=== PATIENT | female | born 1980 | race Caucasian/White ===

== ENCOUNTER 2018-05-29 02:10 | Inpatient (IN) | payer OTHER, MEDICAID ==
[2018-05-29] VITALS (7 sets, daily range): BP systolic 134–159; BP diastolic 60–87
[~2018-05-29] VITALS: Ht 157.5 cm; Wt 46.2 kg
[~2018-05-29 02:10] MED LIST: AMOXICILLIN500 M1 PO; BACTRIM DS TAB1 EACH PO; BACTROBAN CREAM30 G1 TOP; CIPRO500 MG PO; DIURETIC; FLONASE 0.05%50 MCG NASAL; GABAPENTIN 100100 MG PO; HYDROCHLOROTHIA25 M2 PO; HYDROCODON-ACE1 EAC7 PO; HYDROCODONE-APA1 TA1 PO; INSULIN SYRING1 EA11 MC; LANTUS; LANTUS SUBQ; LASIX 20 MG TAB20 MG PO; LIDODERM 5%1 PATC1 TOP; NORCO 10-325 T1 EACH PO; NOVOLOG INSULIN; NOVOLOG100 UNIT/1; NOVOLOG100 UNIT/1 SQ; NOVOLOG100 UNIT/1 SUBQ; TRAMADOL 50 MG50 MG PO; ULTRAM 50MG TAB50 MG PO; ZOFRAN ODT4 MG PO
[2018-05-29 03:40] LABS: ABSOLUTE BASOPHILS 0.1 thou/uL (0.0-0.2); ABSOLUTE EOSINOPHILS 0.2 thou/uL (0.0-0.7); ABSOLUTE MONOCYTES 0.8 thou/uL (0.0-1.2); ABSOLUTE NEUTROPHILS 8.3 thou/uL (1.6-8.1); BASOPHILS 0.7 %; EOSINOPHILS 1.6 %; HEMATOCRIT 34.3 % (37.0-47.0); HEMOGLOBIN 11.7 gm/dL (12.0-15.0); LYMPHOCYTES 17.9 %; MCH 34.1 pg (26.0-34.0); MCV 100.3 fL (80.0-100.0); MONOCYTES 6.9 %; MPV 7.6 fl. (7.2-11.1); NUCLEATED RBCS 0 /100WBC; PLATELET COUNT* 392 thou/uL (150-400); POLYS 72.9 %; RBC 3.42 mil/uL (4.20-5.00); RDW-CV 13.6 % (10.5-14.5); WBC 11.4 thou/uL (4.0-11.0)
[2018-05-29 03:49] LABS: CALCIUM 8.2 mg/dL (8.5-10.1); CREATININE 1.1 mg/dL (0.6-1.3)
[2018-05-29 03:54] LABS: ALBUMIN 2.5 g/dL (3.4-5.0); TOTAL BILIRUBIN 0.1 mg/dL (<0.1-1.0); TOTAL PROTEIN 6.3 g/dL (6.4-8.2)
[2018-05-29 05:12] LABS: AMP/METHAMP Negative (Negative); BARBITURATES Negative (Negative); BENZODIAZEPINES Negative (Negative); COCAINE Negative (Negative); METHADONE Negative (Negative); OPIATES POSITIVE (Negative); PCP Negative (Negative); THC Negative (Negative)
[2018-05-29 05:15] LABS: URINE BILIRUBIN NEGATIVE (Negative); URINE BLOOD NEGATIVE (Negative); URINE CLARITY CLEAR; URINE COLOR YELLOW; URINE GLUCOSE-RANDOM 3+ (Negative); URINE KETONES 2+ (Negative); URINE LEUKOCYTES-REFLEX NEGATIVE (Negative); URINE NITRITE-REFLEX NEGATIVE (Negative); URINE PROTEIN 1+ (Negative); URINE SPECIFIC GRAVITY 1.015 (1.005-1.030); URINE UROBILINOGEN 0.2 E.U./dl (0.2-1.0)
[2018-05-29 05:37] LABS: BE -14.1 mmol/L (-2 to +3); PCO2 28.6 mmHg (35.0-45.0)
[2018-05-29 05:41] LABS: pH 7.233 (7.340-7.450)
[2018-05-29 05:42] LABS: HCO3 11.8 mmol/L (22.0-26.0)
[2018-05-29 09:23] LABS: ALBUMIN 2.1 g/dL (3.4-5.0); CALCIUM 7.7 mg/dL (8.5-10.1); CREATININE 0.7 mg/dL (0.6-1.3); MAGNESIUM 1.7 mg/dL (1.8-2.4); PHOSPHORUS* 1.9 mg/dL (2.5-4.9); POTASSIUM 3.7 mmol/L (3.5-5.1)
[2018-05-29 09:41] LABS: URINE BILIRUBIN NEGATIVE (Negative); URINE BLOOD NEGATIVE (Negative); URINE CLARITY CLEAR; URINE COLOR YELLOW; URINE GLUCOSE-RANDOM 3+ (Negative); URINE KETONES 2+ (Negative); URINE LEUKOCYTES NEGATIVE (Negative); URINE NITRITE NEGATIVE (Negative); URINE PROTEIN 1+ (Negative); URINE SPECIFIC GRAVITY 1.015 (1.005-1.030); URINE UROBILINOGEN 0.2 E.U./dl (0.2-1.0)
--- NOTE | 2018-05-30 12:06 | CON ---
[address] [address] CONSULTATION Name: AKIKO CAMPOS Room: [address] IN .R.#: [id number] Admission: 05/29/18 Attend Phys: Jenna Bang Discharge: 05/29/18 Date of : 78 Report #: [id number] THIS REPORT FOR: //name// CC: DAVEY JOYCE Physician staff Sander Ridley DATE OF SERVICE: 05/29/2018 INFECTIOUS DISEASE CONSULTATION ATTENDING PHYSICIAN: Dr. Ridley. REASON FOR EVALUATION: Skin and soft tissue infection with posterior neck abscess. HISTORY OF PRESENT ILLNESS: Chart reviewed, the patient examined. This is a 38-year-old woman with diabetes mellitus type 1 diagnosed roughly 30 years ago, who was admitted to the Emergency Room with about 1-week history of illness. She noted increasing inflammatory subcutaneous mass in the posterior aspect of her neck. She did note she has not had previous skin and soft tissue infections prior to this. Her blood sugars were difficult to control. She had some fevers. On evaluation, she was found to have an elevated lactic acid and probably had a component of diabetic ketoacidosis as well, with low bicarbonate and increased anion gap. She was empirically started on combination of Rocephin and vancomycin. She is not overtly toxic at this point. Did have bedside debridement in the OR and does have a packing. She does appear to be encephalopathic. Denies any significant pulmonary or gastrointestinal-related complaints. ALLERGIES: NONSTEROIDALS. MEDICATIONS: Include Zosyn, vancomycin, oxycodone, ibuprofen and insulin. PAST MEDICAL HISTORY: As described above. She does have peripheral neuropathy and hypertension. SOCIAL HISTORY: Former smoker. No ethanol, no illicit drug use. FAMILY HISTORY: Noncontributory. REVIEW OF SYSTEMS: As above. PHYSICAL EXAMINATION: GENERAL: She appears somewhat chronically ill, undernourished. She is pleasant, cooperative. She is in ucjf-de-rglfjgjg [place] [address] CONSULTATION Name: ANDRESAKIKO L Room: [address]#: [id number] Admission: 05/29/18 Attend Phys: Jenna Bang Discharge: 05/29/18 Date of : 78 Report #: [id number] neck pain. VITAL SIGNS: Temperature 98.2, pulse 92, respirations 18 and blood pressure 134/77. SKIN: Warm, dry. No rashes. HEENT: Unremarkable. NECK: Has an inflammatory subcutaneous mass with some yelwtqhslu-uk-vptyhx inflammation noted superficially. There is a ribbon gauze in place. This was not disturbed. It is palpably tender. LUNGS: Generally clear to auscultation. HEART: Regular. I do not appreciate any murmur. Borderline tachycardic. ABDOMEN: Soft, nontender and nondistended. EXTREMITIES: No cyanosis. GENITOURINARY: Deferred. RECTAL: Deferred. LABORATORY DATA: Urinalysis with 3+ glucose, 1+ protein and 2+ ketones. Electrolytes: Sodium 133, potassium 3.7, chloride 106, bicarb is 15 with anion gap of 12. It is actually improved from admission with anion gap of 17 with bicarbonate of 13. Glucose was 321. LFTs unremarkable, except for borderline alkaline phosphatase elevation to 138. Albumin 25, total protein 6.3 and estimated GFR 55. CBC: White count of 11.4, H and H 11.7 and 34.3 and platelets of 392,000. Lactic acid initially was 4.6, repeat was 0.3. ASSESSMENT: Skin and soft tissue infection with abscess, suspect complicated by diabetes mellitus type 2. There was metabolic acidosis as well, perhaps mixed. PLAN: We will continue antibiotics as prescribed. I did discuss with Surgery and we may need to further open that up. Continue to monitor expectantly, correct insulin deficit at this point. <ELECTRONICALLY SIGNED> By: Rory Bautista MD 05/30/18 1206 1544 0030Joshoaib Bautista MD /nt
== END 2018-05-29 12:40 | disposition left against medical advice (07) | DRG 871 ==
LOC: M.ERS 02:10 → M.TBA-ER 05:05 → M.ERS 05:05 → M.TBA-ER 05:57 → M.ICU 05:57
PROVIDERS: Internal Medicine; Personal Emergency Response Attendant; ADMIT Internal Medicine
PROC: 0H94XZZ Drainage of Neck Skin, External Approach (ICD-10-PCS; principal; 2018-05-29)
DX: A41.9 Sepsis, unspecified organism (principal); E10.10 Type 1 diabetes mellitus with ketoacidosis without coma; L02.11 Cutaneous abscess of neck; L03.221 Cellulitis of neck; Z53.21 Procedure and treatment not carried out due to patient leaving prior to being seen by health care provider; I10 Essential (primary) hypertension; E10.42 Type 1 diabetes mellitus with diabetic polyneuropathy; F17.210 Nicotine dependence, cigarettes, uncomplicated; Z98.891 History of uterine scar from previous surgery; Z79.4 Long term (current) use of insulin; Z88.8 Allergy status to other drugs, medicaments and biological substances

== ENCOUNTER 2018-05-30 16:18 | Inpatient (IN) | payer OTHER, MEDICAID ==
[~2018-05-30] VITALS: Ht 157.5 cm; Wt 59.9 kg
[2018-05-30 16:29] VITALS: BP 141/62
[2018-05-30 16:50] LABS: ABSOLUTE BASOPHILS 0.1 thou/uL (0.0-0.2); ABSOLUTE EOSINOPHILS 0.1 thou/uL (0.0-0.7); ABSOLUTE LYMPHOCYTES 2.3 thou/uL (0.8-5.3); ABSOLUTE MONOCYTES 1.1 thou/uL (0.0-1.2); ABSOLUTE NEUTROPHILS 9.9 thou/uL (1.6-8.1); BASOPHILS 0.6 %; EOSINOPHILS 0.8 %; HEMATOCRIT 38.9 % (37.0-47.0); HEMOGLOBIN 12.4 gm/dL (12.0-15.0); LYMPHOCYTES 16.8 %; MCH 33.9 pg (26.0-34.0); MONOCYTES 8.4 %; NUCLEATED RBCS 0 /100WBC; POLYS 73.4 %; RBC 3.67 mil/uL (4.20-5.00); WBC 13.5 thou/uL (4.0-11.0)
[2018-05-30 16:55] LABS: MCV 106.1 fL (80.0-100.0); PLATELET COUNT* 477 thou/uL (150-400)
[2018-05-30 17:05] LABS: BE -26.7 mmol/L (-2 to +3)
[2018-05-30 17:09] LABS: HCO3 2.7 mmol/L (22.0-26.0); PCO2 < 17.0 mmHg (35.0-45.0); pH 6.999 (7.340-7.450)
[2018-05-30 17:37] LABS: ANION GAP 27 mmol/L (7-16); BUN 21 mg/dL (7-18); CALCIUM 8.3 mg/dL (8.5-10.1); CHLORIDE 96 mmol/L (98-107); CREATININE 0.9 mg/dL (0.6-1.3); POTASSIUM 4.3 mmol/L (3.5-5.1); SODIUM 128 mmol/L (136-145)
[2018-05-30 17:38] LABS: CO2 < 5 mmol/L (21-32); GLUCOSE 700 mg/dL (70-99)
[2018-05-30 17:46] LABS: ALBUMIN 2.4 g/dL (3.4-5.0); ALKALINE PHOSPHATASE 125 U/L (46-116); SGOT 10 U/L (15-37); SGPT 15 U/L (30-65); TOTAL BILIRUBIN 0.4 mg/dL (<0.1-1.0); TOTAL PROTEIN 6.5 g/dL (6.4-8.2)
[2018-05-30 18:26] LABS: URINE BILIRUBIN NEGATIVE (Negative); URINE BLOOD 3+ (Negative); URINE CLARITY CLEAR; URINE COLOR YELLOW; URINE GLUCOSE-RANDOM 2+ (Negative); URINE LEUKOCYTES-REFLEX NEGATIVE (Negative); URINE NITRITE-REFLEX NEGATIVE (Negative); URINE PROTEIN 1+ (Negative); URINE UROBILINOGEN 0.2 E.U./dl (0.2-1.0)
[2018-05-30 18:29] LABS: URINE KETONES 3+ (Negative)
[2018-05-30 18:37] LABS: CASTS None Seen /LPF (None Seen); MUCUS None Seen strn/LPF (None Seen); SQUAMOUS >10 Many /LPF (0-3)
[2018-05-30 18:38] VITALS: BP 140/72
[2018-05-30 18:38] LABS: BACTERIA-REFLEX 1-9 Few /HPF (None Seen); CRYSTALS None Seen /LPF (None Seen); URINE WBC-REFLEX 0-5 Rare /HPF (0-5); YEAST-REFLEX Present (None Seen)
[2018-05-30 19:00] VITALS: BP 144/81
--- NOTE | 2018-05-30 19:00 | NUR ---
PT CAME TO ICU AT 183. PT C/O OF BACK PAIN 05/10. PT REPORTS SHE DOES NOT LIKE FENTANYL AND PREFERS MORPHINE BECAUSE IT HELPS HER SLEEP BETTER. DR NOTIFIED AND RECEIVED PRN ORDER FOR FENTANYL. INSULIN GTT STARTED. FLUIDS STARTED. VSS. AFEBRILE. LABORED BREATHING , 100% ON ROOM AIR. PUT 2L NC FOR COMFORT, TAKEN OFF PER PT REQUEST.
[2018-05-30 20:50] LABS: ALBUMIN 2.5 g/dL (3.4-5.0); CALCIUM 8.1 mg/dL (8.5-10.1); PHOSPHORUS* 3.4 mg/dL (2.5-4.9); POTASSIUM 3.6 mmol/L (3.5-5.1)
[2018-05-30 21:00] VITALS: BP 133/73
[2018-05-30 22:00] VITALS: BP 124/73
[2018-05-30 22:47] LABS: BE -19.1 mmol/L (-2 to +3)
[2018-05-30 22:49] LABS: pH 7.191 (7.340-7.450)
[2018-05-30 22:50] LABS: HCO3 7.1 mmol/L (22.0-26.0); PCO2 18.9 mmHg (35.0-45.0); PO2 132.2 mmHg (75.0-100.0)
[2018-05-30 23:00] VITALS: BP 118/65
[2018-05-31] VITALS (24 sets, daily range): BP systolic 104–144; BP diastolic 49–80
[2018-05-31 01:11] LABS: ALBUMIN 1.8 g/dL (3.4-5.0); CALCIUM 7.3 mg/dL (8.5-10.1); CREATININE 0.8 mg/dL (0.6-1.3); MAGNESIUM 1.7 mg/dL (1.8-2.4); PHOSPHORUS* 2.2 mg/dL (2.5-4.9); POTASSIUM 3.7 mmol/L (3.5-5.1)
--- NOTE | 2018-05-31 01:22 | NUR ---
ADMITTED TO ICU BED 1 AT 1845, SEE ASSESSMENT. DKA PROTOCOL INITIATED. ABCESS TO BACK OF NECK WHICH HAD BEEN I&D'd 05/29/18 IN ER, PHOTO TAKEN AND WOUND RN CONSULTED. ASSISTED PT TO BSC WITH SBA ONLY X1, GAIT STEADY. PT ORIENTED TO CALL LIGHT AND ROOM, VERBALIZED UNDERSTANDING.
[2018-05-31 04:44] LABS: HEMATOCRIT 30.3 % (37.0-47.0); MCH 33.6 pg (26.0-34.0); MCHC 33.6 g/dL (28.0-37.0); MPV 7.3 fl. (7.2-11.1); NUCLEATED RBCS 0 /100WBC; RBC 3.02 mil/uL (4.20-5.00); RDW-CV 13.7 % (10.5-14.5)
[2018-05-31 05:02] LABS: HEMOGLOBIN 10.2 gm/dL (12.0-15.0); MCV 100.2 fL (80.0-100.0); PLATELET COUNT* 385 thou/uL (150-400)
[2018-05-31 05:10] LABS: ALBUMIN 1.8 g/dL (3.4-5.0); ALKALINE PHOSPHATASE 74 U/L (46-116); ANION GAP 13 mmol/L (7-16); BUN 13 mg/dL (7-18); CHLORIDE 107 mmol/L (98-107); CO2 14 mmol/L (21-32); CREATININE 0.7 mg/dL (0.6-1.3); GLUCOSE 147 mg/dL (70-99); MAGNESIUM 1.6 mg/dL (1.8-2.4); PHOSPHORUS* 1.8 mg/dL (2.5-4.9); POTASSIUM 3.5 mmol/L (3.5-5.1); SGOT 8 U/L (15-37); SGPT 10 U/L (30-65); SODIUM 134 mmol/L (136-145); TOTAL PROTEIN 5.1 g/dL (6.4-8.2)
[2018-05-31 05:16] LABS: TOTAL BILIRUBIN < 0.1 mg/dL (<0.1-1.0)
[2018-05-31 06:05] LABS: ABSOLUTE BASOPHILS 0.1 thou/uL (0.0-0.2); ABSOLUTE EOSINOPHILS 0.2 thou/uL (0.0-0.7); ABSOLUTE MONOCYTES 0.8 thou/uL (0.0-1.2); ABSOLUTE NEUTROPHILS 6.9 thou/uL (1.6-8.1); ANISOCYTOSIS 1+; PLATELET ESTIMATE ADEQUATE; POIKILOCYTOSIS 1+
--- NOTE | 2018-05-31 06:21 | NUR ---
SPOKE WITH DR SOLIS, MAG REPLACEMENT AND CLEAR LIQUID DIET ORDERED. PT PROGRESSING TOWARD GOALS, GAP CLOSED AND ELYTES NORMALIZING. PT TOLERATING WELL, DENIES SOA AND NAUSEA. BACK AND NECK PAIN TREATED WITH PRN FENTANYL ORDERED. CALL LIGHT WITHIN REACH.
[2018-05-31 09:37] LABS: ALBUMIN 1.9 g/dL (3.4-5.0); CALCIUM 7.1 mg/dL (8.5-10.1); CREATININE 0.5 mg/dL (0.6-1.3); MAGNESIUM 2.3 mg/dL (1.8-2.4); PHOSPHORUS* 1.5 mg/dL (2.5-4.9)
[2018-05-31 09:38] LABS: POTASSIUM 4.5 mmol/L (3.5-5.1)
--- NOTE | 2018-05-31 10:10 | NUR ---
MET WITH PT TO DISCUSS HOME SITUATION/DC PLANNING. PT KNOWN FROM PREVIOUS HOSPITAL STAY, SHE LEFT AMA. STATES HER FATHER WAS HAVING SURGERY AND SHE NEEDED TO BE THERE. READMITTED NOW WITH DKA AND NECK ABSCESS. PT STATES SHE LIVES WITH HER SPOUSE AND 13Y/O SON. IS INDEPENDENT AND ACTIVE. PT STATES SHE HAS [employer]SB[employer] METER AT HOME AND MANAGES HER DM FAIRLY WELL. DENIES ANY DC NEEDS AT THIS TIME. WILL FOLLOW
[2018-05-31 12:43] LABS: ALBUMIN 1.7 g/dL (3.4-5.0); CALCIUM 6.7 mg/dL (8.5-10.1); CREATININE 0.7 mg/dL (0.6-1.3); MAGNESIUM 2.3 mg/dL (1.8-2.4); PHOSPHORUS* 1.9 mg/dL (2.5-4.9); POTASSIUM 4.3 mmol/L (3.5-5.1)
[2018-05-31 17:21] LABS: ALBUMIN 1.9 g/dL (3.4-5.0); CALCIUM 6.9 mg/dL (8.5-10.1); CREATININE 0.6 mg/dL (0.6-1.3); MAGNESIUM 2.2 mg/dL (1.8-2.4); PHOSPHORUS* 2.5 mg/dL (2.5-4.9)
[2018-05-31 20:41] LABS: ALBUMIN 1.9 g/dL (3.4-5.0); CALCIUM 7.3 mg/dL (8.5-10.1); CREATININE 0.6 mg/dL (0.6-1.3); PHOSPHORUS* 2.4 mg/dL (2.5-4.9); POTASSIUM 4.2 mmol/L (3.5-5.1)
[2018-06-01] VITALS (19 sets, daily range): BP systolic 106–153; BP diastolic 54–81
[2018-06-01 00:52] LABS: ALBUMIN 1.7 g/dL (3.4-5.0); CALCIUM 7.1 mg/dL (8.5-10.1); CREATININE 0.6 mg/dL (0.6-1.3); PHOSPHORUS* 2.6 mg/dL (2.5-4.9); POTASSIUM 3.8 mmol/L (3.5-5.1)
[2018-06-01 06:15] LABS: ALBUMIN 1.9 g/dL (3.4-5.0); CALCIUM 7.5 mg/dL (8.5-10.1); CREATININE 0.7 mg/dL (0.6-1.3); MAGNESIUM 2.1 mg/dL (1.8-2.4); PHOSPHORUS* 2.8 mg/dL (2.5-4.9)
[2018-06-01 10:18] LABS: CALCIUM 7.2 mg/dL (8.5-10.1); CREATININE 0.5 mg/dL (0.6-1.3)
[2018-06-01 10:29] LABS: CALCIUM 7.2 mg/dL (8.5-10.1); CREATININE 0.5 mg/dL (0.6-1.3); PHOSPHORUS* 2.3 mg/dL (2.5-4.9); POTASSIUM 4.1 mmol/L (3.5-5.1)
--- NOTE | 2018-06-01 10:30 | NUR ---
VSS. AFEBRILE. ABCESS ON NECK CLEANED PER WOUND CARE ORDERS. PER DR GANNON RECEIVED ORDER "OKAY FOR PT TO BE OFF ALL GTTS FOR 20 MINUTES FOR A SHOWER". PT SHOWERED. GTTS INFUSING PER PROTOCOL. PT ON CARB CONTROLLED DIET AND TOLERATING FOODS. PT EDEMATOUS IN ARMS AND LEGS. PT REPORTS FEELING "STIFF". WILL CONTINUE PLAN OF CARE.
[2018-06-01 14:31] LABS: ALBUMIN 1.8 g/dL (3.4-5.0); CALCIUM 7.1 mg/dL (8.5-10.1); CREATININE 0.7 mg/dL (0.6-1.3); MAGNESIUM 1.7 mg/dL (1.8-2.4); PHOSPHORUS* 2.3 mg/dL (2.5-4.9)
--- NOTE | 2018-06-01 15:16 | NUR ---
ABCESS WOUND CLEANSED AND CHANGED 2ND TIME THIS SHIFT PT TOOK OFF DRESSING DUE TO ITCHYNESS AND SELF CLEANED WOUND. BENADRYL GIVEN AND PT EDUCATED TO NOT PUT CLEANSERS ON WOUND. 1400 LABS CALLED TO AND ASKED TO DECREASE FLUIDS TO 100/HR. NOTIFIED OF FLUIDS PER PROTOCOL AND OKAY WITH NS C/ 20 K AND 6MM KPHOS.
[2018-06-01 18:15] LABS: ALBUMIN 1.7 g/dL (3.4-5.0); CREATININE 0.6 mg/dL (0.6-1.3); MAGNESIUM 1.9 mg/dL (1.8-2.4); PHOSPHORUS* 2.7 mg/dL (2.5-4.9); POTASSIUM 4.1 mmol/L (3.5-5.1)
--- NOTE | 2018-06-01 18:52 | NUR ---
WARM COMPRESS APPLIED TO NECK ABCESS PER DR ORDERS. THEN 3RD DRESSING PLACED ON ABCESS PER DR ORDERS.
[2018-06-01 22:45] LABS: ALBUMIN 1.9 g/dL (3.4-5.0); CREATININE 0.5 mg/dL (0.6-1.3); PHOSPHORUS* 2.9 mg/dL (2.5-4.9); POTASSIUM 4.6 mmol/L (3.5-5.1)
[2018-06-02] VITALS: BP 104/65
[2018-06-02 02:00] VITALS: BP 111/67
[2018-06-02 03:35] LABS: ALBUMIN 1.8 g/dL (3.4-5.0); CALCIUM 7.1 mg/dL (8.5-10.1); CREATININE 0.5 mg/dL (0.6-1.3); POTASSIUM 4.4 mmol/L (3.5-5.1); TOTAL BILIRUBIN 0.1 mg/dL (<0.1-1.0); TOTAL PROTEIN 4.9 g/dL (6.4-8.2)
[2018-06-02 03:37] LABS: HEMATOCRIT 28.4 % (37.0-47.0); HEMOGLOBIN 9.6 gm/dL (12.0-15.0); MCHC 33.7 g/dL (28.0-37.0); MCV 101.1 fL (80.0-100.0); MPV 7.6 fl. (7.2-11.1); RBC 2.81 mil/uL (4.20-5.00); RDW-CV 13.6 % (10.5-14.5); WBC 5.8 thou/uL (4.0-11.0)
[2018-06-02 03:56] LABS: ALBUMIN 1.8 g/dL (3.4-5.0); CALCIUM 7.5 mg/dL (8.5-10.1); CREATININE 0.6 mg/dL (0.6-1.3); POTASSIUM 4.6 mmol/L (3.5-5.1)
[2018-06-02 04:00] VITALS: BP 125/70
--- NOTE | 2018-06-02 05:09 | NUR ---
ASSUMED OF PT AT 1900 PT ALERT AND ORIENTED X 4 VS AND ASSESSMENT STABLE. PT CONITNUES ON INSULIN GTT THATS TITRATED BASED ON HOURLY BLOOD GLUCOSE LEVELS. PT REPORTING GENERALIZED PAIN AND GIVEN PRN MORPHINE AND NORCO NEEDED WITH GOOD EFFECT. PT RUNNING NSR TO ST ON THE MONITOR. WILL CONTINUE PLAN OF CARE.
[2018-06-02 06:00] VITALS: BP 113/71
[2018-06-02 07:33] LABS: ALBUMIN 1.9 g/dL (3.4-5.0); CALCIUM 7.2 mg/dL (8.5-10.1); CREATININE 0.5 mg/dL (0.6-1.3); PHOSPHORUS* 2.9 mg/dL (2.5-4.9); POTASSIUM 4.7 mmol/L (3.5-5.1)
[2018-06-02 11:31] LABS: CALCIUM 7.5 mg/dL (8.5-10.1); CREATININE 0.7 mg/dL (0.6-1.3); MAGNESIUM 1.8 mg/dL (1.8-2.4); PHOSPHORUS* 3.1 mg/dL (2.5-4.9); POTASSIUM 4.1 mmol/L (3.5-5.1)
--- NOTE | 2018-06-02 11:44 | NUR ---
PATIENT ALERT DENIES SOA OR DIZZINESS. INSULIN DCD. STARTED ON POCARB CONTROL DIET.
--- NOTE | 2018-06-02 17:41 | NUR ---
PATIENT TRANSFERED TO RM 222 REPORT GIVEN TO MARA BOCANEGRA. PT DENIES DISTRESS.
[2018-06-02 17:46] VITALS: BP 117/79
--- NOTE | 2018-06-02 18:10 | NUR ---
RECIEVIED REPORT FROM GROVER RN IN ICU OF EXPECTED TRANSFER AT 1720- DX: DKA WITH BACTEREMIA- PT ARRIVED VIA W/C PER TECH TO ROOM 222 AT 1732- GARBAGE MAN PLACED ORDERED, TRACING SR- VS 98.4 18 117/79 89 965 ON RA- MRSA ISOLATION IN PLACE INDICATED R/T MRSA OF WOUND- DRESSING NOTED TO BE INTACT WITH MINIMAL DRAINAGE NOTED TO POSTERIOR NECK- PRIOR ASSESSMENT REVIEWED AND AGREE WITH- IV NOTED TO RIGHT FA INTACT AND SL- CALL LIGHT AND PERSONAL BELONGINGS WITH IN REACH- ALL NEEDS MET AT THIS TIME-WCTM
[2018-06-02 20:00] VITALS: BP 115/84; BP 142/83
[2018-06-03] VITALS: BP 144/87
[2018-06-03 04:00] VITALS: BP 115/73
[2018-06-03 05:09] LABS: HEMATOCRIT 26.5 % (37.0-47.0); HEMOGLOBIN 8.9 gm/dL (12.0-15.0); MCHC 33.5 g/dL (28.0-37.0); MCV 101.6 fL (80.0-100.0); MPV 7.3 fl. (7.2-11.1); RBC 2.61 mil/uL (4.20-5.00); RDW-CV 13.6 % (10.5-14.5); WBC 5.7 thou/uL (4.0-11.0)
[2018-06-03 05:38] LABS: ALBUMIN 1.8 g/dL (3.4-5.0); CALCIUM 7.9 mg/dL (8.5-10.1); CREATININE 0.6 mg/dL (0.6-1.3); MAGNESIUM 1.8 mg/dL (1.8-2.4); POTASSIUM 4.3 mmol/L (3.5-5.1); TOTAL BILIRUBIN 0.2 mg/dL (<0.1-1.0); TOTAL PROTEIN 5.2 g/dL (6.4-8.2)
--- NOTE | 2018-06-03 06:02 | NUR ---
ASSUMED CARE OF PATIENT AFTER REPORT AT 1930. PT A&OX4. VSS. PHYSICAL ASSESSMENT COMPLETED AND CHARTED. PT ON RA WITH 95% O2 SAT. PT TRACING SR ON TELE. PT UP ADLIB TO TOILET. COMLAINED OF NECK & BACK PAIN WITH PAIN SCALE OF 10/10-PAIN MEDS GIVEN PER MAR WITH PARTIAL RELIEF. WOUND AT THE BACK OF THE NECK CLEANED WITH DAKINS SOLN, PACKED WITH AQUA HOWARD AG AND COVERED WITH BORDERED FOAM.PHOTOGRAPH TAKEN. HOURLY ROUNDING OBSERVED. CALL LIGHT WITHIN REACH.
[2018-06-03 08:00] VITALS: BP 115/77
[2018-06-03 09:05] VITALS: BP 138/78
--- NOTE | 2018-06-03 12:00 | NUR ---
ASSUMED CARE OF PT AFTER RECEIVING REPORT FROM NOC RN. PT A & O X4. ROLL UP MACHINE OPERATOR IN PLACE, SR. IV SL. O2 SATS 98% ON RA. UP AD NELIDA IN ROOM. PRN PAIN MED GIVEN FOR HEAD AND NECK PAIN. ASSESSMENT COMPLETE AND DOCUMENTED. MEDS PER NOV. CALL LIGHT IN REACH.
[2018-06-03 16:00] VITALS: BP 125/74
--- NOTE | 2018-06-03 18:30 | NUR ---
PT UP AD NELIDA IN ROOM. FAMILY VISITING. A & O X4. IV SL. PRN PAIN MED GIVEN PER NOV. PT UP TO SHOWER THIS AFTERNOON AND STATED THAT SHE ALLOWED WARM WATER TO BACK OF NECK PER DOCTOR'S SUGGESTION. WOUND CARE COMPLETED AFTER SHOWER PER ORDER BY THIS NURSE. PT MARCO WELL. CALL LIGHT IN REACH.
[2018-06-03 20:00] VITALS: BP 115/84
[2018-06-04 00:34] LABS: URINE BILIRUBIN NEGATIVE (Negative); URINE BLOOD NEGATIVE (Negative); URINE CLARITY CLEAR; URINE COLOR STRAW; URINE GLUCOSE-RANDOM NEGATIVE (Negative); URINE KETONES NEGATIVE (Negative); URINE LEUKOCYTES NEGATIVE (Negative); URINE NITRITE NEGATIVE (Negative); URINE PROTEIN NEGATIVE (Negative); URINE UROBILINOGEN 0.2 E.U./dl (0.2-1.0)
[2018-06-04 04:39] VITALS: BP 125/78
[2018-06-04 04:49] LABS: HEMATOCRIT 27.3 % (37.0-47.0); HEMOGLOBIN 9.2 gm/dL (12.0-15.0); MCH 34.3 pg (26.0-34.0); MCHC 33.7 g/dL (28.0-37.0); MCV 101.6 fL (80.0-100.0); MPV 7.4 fl. (7.2-11.1); RBC 2.69 mil/uL (4.20-5.00); RDW-CV 13.8 % (10.5-14.5); WBC 6.8 thou/uL (4.0-11.0)
--- NOTE | 2018-06-04 04:55 | NUR ---
ASSUMED CARE OF PT AFTER REPORT AT 1930. PT A&OX4. VSS. PHYSICAL ASSESSMENT COMLPETED AND CHARTED. PT ON RA WITH 96% O2 SAT. PT ON MEDSURG STATUS. PT UP ADLIB TO TOILET. PT COMPLAINED OF NECK & BACK PAIN WITH PAIN SCALE OF 6/10-PAIN MEDS GIVEN PER MAR WITH PARTIAL RELIEF. HOURLY ROUNDING OBSERVED. HS REST & SAFETY GOALS ACHIEVED. CALL LIGHT WITHIN REACH.
[2018-06-04 05:13] LABS: CALCIUM 8.2 mg/dL (8.5-10.1); CREATININE 0.5 mg/dL (0.6-1.3); POTASSIUM 3.9 mmol/L (3.5-5.1)
[2018-06-04 07:55] VITALS: BP 123/98
[2018-06-04] MEDS ORDERED: LANTUS SUBQ (11:36)
[2018-06-04] MEDS ORDERED: NORCO 10-325 T1 EACH PO (11:36)
[2018-06-04] MEDS ORDERED: ZYVOX600 MG PO (11:36)
[2018-06-04] MEDS ORDERED: HUMALOG100 UNIT/1 SUBQ (11:36)
--- NOTE | 2018-06-04 12:44 | NUR ---
TIMBO met with pt to discuss pharmacy preference; pt still uses [facility] in [place] off of [address] or [facility] [address] [place] if needed. TIMBO called [place] [facility] and checked [place] for Zyvox and was told cost was $2. TIMBO informed pt who was pleased with amount and agreed she could afford the med at that [place]. Pt did not express any other questions or dc needs.
[2018-06-04 13:06] VITALS: BP 123/98
--- NOTE | 2018-06-04 13:37 | NUR ---
PATIENT GIVEN DISCHARGE INSTRUCTIONS AND PRESCRIPTIONS AT THIS TIME. PATIENT'S WOUND PHOTO TAKEN PRIOR TO DISCHARGING. IV REMOVED. PATIENT VERBALIZED UNDERSTANDING IN REGARDS TO FOLLOW UP APPOINTMENTS, NEW MEDICATIONS, AND WOUND CARE. PATIENT AMBULATED OFF NURSING UNIT WITH NURSING STAFF. DISCHARGED TO HOME WITH ALL BELONGINGS.
--- NOTE | 2018-06-04 16:35 | NUR ---
WAS ASKED TO PRIOR AUTH PT'S HYDROCODONE SCRIPT AT [facility]. CALLED AND SPOKE WITH PHARMACIST. THEY HAD ENTERED IT WRONG, SHE CORRECTED IT AND NO PRIOR AUTH NEEDED
== END 2018-06-04 13:37 | disposition home or self-care (01) | DRG 871 ==
LOC: M.ERS 16:18 → M.ICU 17:46 → M.TBA-ER 17:46 → M.ICU 18:56 → M.2W 06-02 17:37
PROVIDERS: Emergency Medicine Emergency Medical Services; Internal Medicine; ADMIT Internal Medicine
PROC: 0H94XZZ Drainage of Neck Skin, External Approach (ICD-10-PCS; principal; 2018-05-30)
DX: A41.9 Sepsis, unspecified organism (principal); E10.10 Type 1 diabetes mellitus with ketoacidosis without coma; L03.221 Cellulitis of neck; L02.11 Cutaneous abscess of neck; R65.20 Severe sepsis without septic shock; E88.09 Other disorders of plasma-protein metabolism, not elsewhere classified; B95.62 Methicillin resistant Staphylococcus aureus infection as the cause of diseases classified elsewhere; E10.40 Type 1 diabetes mellitus with diabetic neuropathy, unspecified; Z98.891 History of uterine scar from previous surgery; Z87.891 Personal history of nicotine dependence; Z79.4 Long term (current) use of insulin; Z79.899 Other long term (current) drug therapy; Z88.8 Allergy status to other drugs, medicaments and biological substances

== ENCOUNTER 2018-07-08 17:15 | Inpatient (IN) | payer MEDICAID ==
[~2018-07-08] VITALS: Ht 157.5 cm; Wt 57.2 kg
[~2018-07-08 17:15] MED LIST changes: +HUMALOG100 UNIT/1 SUBQ; +ZYVOX600 MG PO
[2018-07-08 17:24] VITALS: BP 120/83
[2018-07-08 18:08] LABS: HEMATOCRIT 47.4 % (37.0-47.0); HEMOGLOBIN 15.4 gm/dL (12.0-15.0); MCH 31.3 pg (26.0-34.0); MCHC 32.4 g/dL (28.0-37.0); MCV 96.5 fL (80.0-100.0); MPV 7.9 fl. (7.2-11.1); NUCLEATED RBCS 0 /100WBC; PLATELET COUNT* 370 thou/uL (150-400); RBC 4.91 mil/uL (4.20-5.00); RDW-CV 15.1 % (10.5-14.5); WBC 24.6 thou/uL (4.0-11.0)
[2018-07-08 18:15] LABS: BE -24.9 mmol/L (-2 to +3); PCO2 VENOUS 14.5 mmHg (41.0-51.0); PO2 VENOUS 52.6 mmHg (35.0-45.0)
[2018-07-08 18:17] LABS: HCO3 3.8 mmol/L (22.0-26.0)
[2018-07-08 18:17] LABS: ANION GAP 27 mmol/L (7-16); BUN 32 mg/dL (7-18); CHLORIDE 91 mmol/L (98-107); CREATININE 1.4 mg/dL (0.6-1.3); GLUCOSE 448 mg/dL (70-99); POTASSIUM 4.2 mmol/L (3.5-5.1); SODIUM 123 mmol/L (136-145)
[2018-07-08 18:18] LABS: APTT 26.1 Seconds (25.0-31.3); PROTIME 10.1 Seconds (9.20-11.50)
[2018-07-08 18:28] LABS: ALBUMIN 4.2 g/dL (3.4-5.0); ALKALINE PHOSPHATASE 85 U/L (46-116); NT-PRO BRAIN NAT PEPTIDE 674 pg/mL (<300); SGOT 7 U/L (15-37); SGPT 16 U/L (30-65); TOTAL BILIRUBIN 0.8 mg/dL (<0.1-1.0); TOTAL PROTEIN 8.3 g/dL (6.4-8.2); TROPONIN-I LEVEL <0.06 ng/mL (<0.06)
[2018-07-08 18:29] LABS: CO2 < 5 mmol/L (21-32)
[2018-07-08 20:00] VITALS: BP 174/92
[2018-07-08 20:05] LABS: ABSOLUTE MONOCYTES 2.2 thou/uL (0.0-1.2); ABSOLUTE NEUTROPHILS 20.4 thou/uL (1.6-8.1); ANISOCYTOSIS Occasional; MYELOCYTES 1 %; PLATELET ESTIMATE ADEQUATE
[2018-07-08 21:00] VITALS: BP 180/93
[2018-07-08 21:28] LABS: PHOSPHORUS* 4.6 mg/dL (2.5-4.9)
[2018-07-08 21:45] LABS: CALCIUM 7.2 mg/dL (8.5-10.1); CREATININE 0.9 mg/dL (0.6-1.3)
[2018-07-08 21:48] LABS: ALBUMIN 3.1 g/dL (3.4-5.0); MAGNESIUM 1.4 mg/dL (1.8-2.4); PHOSPHORUS* 1.9 mg/dL (2.5-4.9)
[2018-07-08 21:49] LABS: POTASSIUM 3.1 mmol/L (3.5-5.1)
[2018-07-08 22:00] VITALS: BP 166/87
[2018-07-08 23:00] VITALS: BP 159/82
[2018-07-09] VITALS (19 sets, daily range): BP systolic 97–148; BP diastolic 50–74
[2018-07-09 01:05] LABS: URINE BLOOD TRACE (Negative); URINE CLARITY CLEAR; URINE COLOR STRAW; URINE GLUCOSE-RANDOM 2+ (Negative); URINE LEUKOCYTES-REFLEX NEGATIVE (Negative); URINE NITRITE-REFLEX NEGATIVE (Negative); URINE PROTEIN 1+ (Negative); URINE UROBILINOGEN 0.2 E.U./dl (0.2-1.0)
[2018-07-09 01:14] LABS: URINE KETONES 3+ (Negative)
[2018-07-09 01:15] LABS: URINE BILIRUBIN 1+ (Negative)
[2018-07-09 01:16] LABS: ICTOTEST (BILI CONFIRMATORY) Negative (Negative)
[2018-07-09 01:52] LABS: ABSOLUTE BASOPHILS 0.2 thou/uL (0.0-0.2); ABSOLUTE LYMPHOCYTES 3.4 thou/uL (0.8-5.3); ABSOLUTE MONOCYTES 0.9 thou/uL (0.0-1.2); ABSOLUTE NEUTROPHILS 9.4 thou/uL (1.6-8.1); BASOPHILS 1.2 %; LYMPHOCYTES 24.4 %; MCH 31.1 pg (26.0-34.0); MCHC 33.6 g/dL (28.0-37.0); MCV 92.5 fL (80.0-100.0); MONOCYTES 6.2 %; MPV 7.5 fl. (7.2-11.1); NUCLEATED RBCS 0 /100WBC; POLYS 68.2 %; RBC 3.35 mil/uL (4.20-5.00); RDW-CV 14.4 % (10.5-14.5); WBC 13.8 thou/uL (4.0-11.0)
[2018-07-09 01:53] LABS: HEMOGLOBIN 10.4 gm/dL (12.0-15.0); PLATELET COUNT* 239 thou/uL (150-400)
[2018-07-09 02:08] LABS: ALBUMIN 2.5 g/dL (3.4-5.0); ALKALINE PHOSPHATASE 45 U/L (46-116); ANION GAP 10 mmol/L (7-16); BUN 19 mg/dL (7-18); CALCIUM 6.6 mg/dL (8.5-10.1); CHLORIDE 105 mmol/L (98-107); CO2 18 mmol/L (21-32); CREATININE 0.9 mg/dL (0.6-1.3); GLUCOSE 128 mg/dL (70-99); PHOSPHORUS* 1.2 mg/dL (2.5-4.9); POTASSIUM 3.6 mmol/L (3.5-5.1); SGOT 7 U/L (15-37); SGPT 10 U/L (30-65); SODIUM 133 mmol/L (136-145); TOTAL BILIRUBIN 0.5 mg/dL (<0.1-1.0)
[2018-07-09 06:30] LABS: ALBUMIN 2.5 g/dL (3.4-5.0); CALCIUM 6.9 mg/dL (8.5-10.1); CREATININE 0.7 mg/dL (0.6-1.3); PHOSPHORUS* 1.8 mg/dL (2.5-4.9); POTASSIUM 3.6 mmol/L (3.5-5.1)
--- NOTE | 2018-07-09 07:45 | NUR ---
ADMITTED TO ICU BED 5 AT 1950, SEE ASSESSMENT. IVF AND INSULIN GTT TITRATED PER DKA PROTOCOL. HTN TREATED WITH PRN CLONIDINE X1. C/O CHRONIC NECK AND BACK PAIN, PRN TRAMADOL INEFFECTIVE. ORDER OBTAINED FOR PRN HYDROCODONE, PARTIAL RELIEF OBTAINED. TOLERATING PO INTAKE WITH NO C/O NAUSEA. PT WAS INPT AT [facility] ONE MONTH AGO WITH MRSA POSITIVE WOUND CULTURE OF NECK, ISOLATION CART OBTAINED. VSS. O2 SAT 100% ON RA. CALL LIGHT WITHIN REACH.
--- NOTE | 2018-07-09 10:50 | NUR ---
SPOKE BRIEFLY WITH PT, SHE WAS ADMITTED LAST EVENING WITH DKA. STATES STILL ISN'T FEELING WELL THIS MORNING. PT SAID SHE GOT HER INSULIN RX FILLED AFTER HER LAST HOSPITAL STAY AND HAS BEEN TAKING HER INSULIN. SHE AND HER HAVE 'HAD THE STOMACH FLU SO I THOUGHT THAT'S ALL IT WAS TO START WITH.' PT'S [facility] INSURANCE SHOWS INACTIVE, ASKED PT ABOUT IT AND SHE SAID SHE DOESN'T KNOW ANY REASON WHY IT WOULD, SHE SAID IT SHOULD BE ACTIVE. WILL TALK WITH PT MORE LATER WHEN SHE IS FEELING BETTER.
--- NOTE | 2018-07-09 11:55 | EKG ---
[place] [address] ELECTROCARDIOGRAM REPORT Name: AKIKO CAMPOS Room: [address] IN .R.#: [id number] Admission: 07/08/18 Attend Phys: Karolyn Rodriguez MD Discharge: Date of : 78 Report #: [id number] THIS REPORT FOR: //name// [facility] ED Test Date: 2018-07-08 Test Time: 18:06:13 Pat Name: AKIKO CAMPOS Department: Room: [facility] Gender: F Contract Specialist: Chhaya CAPONE : 1980 Requested By: Bonifacio Hawkins Order Number: [id number] MD: Hugo Hall Measurements Intervals [place] Rate: 114 P: 85 CO: 147 QRS: 68 QRSD: 87 T: -33 QT: 320 QTc: 441 Interpretive Statements Sinus tachycardia Biatrial enlargement Anteroseptal infarct, old Nonspecific T abnormalities, inferior leads Compared to ECG 11/05/2016 23:43:45 T-wave abnormality now present Poor R-wave progression no longer present Myocardial infarct finding still present Electronically Signed On 07-09-2018 11:55:25 CDT by Hugo Hall [email or web address] <ELECTRONICALLY SIGNED> By: Hugo Hall MD, FACC 07/09/18 1155 1806 180 Hugo Hall MD, FACC /EPI
--- NOTE | 2018-07-09 14:54 | NUR ---
Nutrition: Consult received for DM CHO counting educ. Pt admitted with DKA. Type 1 diabetic x many years. Wt: 110-115#. RX: insulin, K+. ISO for +wound culture in neck. Pt has had DM educ in past. RD WILL VISIT WITH PT FOR DM EDUC/REVIEW TOMORROW 07/10/18.
[2018-07-09 16:46] LABS: URINE BLOOD NEGATIVE (Negative); URINE CLARITY CLEAR; URINE COLOR YELLOW; URINE GLUCOSE-RANDOM 2+ (Negative); URINE KETONES 2+ (Negative); URINE LEUKOCYTES-REFLEX NEGATIVE (Negative); URINE NITRITE-REFLEX NEGATIVE (Negative); URINE PROTEIN 1+ (Negative); URINE UROBILINOGEN 0.2 E.U./dl (0.2-1.0)
[2018-07-09 16:51] LABS: ICTOTEST (BILI CONFIRMATORY) Negative (Negative); URINE BILIRUBIN 1+ (Negative)
--- NOTE | 2018-07-09 17:58 | NUR ---
PATIENT IS PROGRESSING WELL TOWARDS GOALS. REMAINS ON INSULIN GTT PER DR ALVES, KETONES STILL PRESENT IN URINE. GAP REMAINS CLOSED. CO2 NORMALIZING. PATIENT TOLERATING A CARB CONTROLLED DIET. FAMILY VISITING AT THIS TIME. PATIENT COMPLAINS OF BACK PAIN, HYDROCODONE GIVEN PRN THROUGHOUT THIS SHIFT. DENIES NAUSEA AND VOMITTING. DENIES SHORTNESS OF AIR. BED IN LOWEST POSITION, CALL LIGHT IN REACH.
[2018-07-09 23:05] LABS: CALCIUM 7.3 mg/dL (8.5-10.1); CREATININE 0.7 mg/dL (0.6-1.3); POTASSIUM 3.5 mmol/L (3.5-5.1)
[2018-07-09 23:06] LABS: GLYCOHEMOGLOBIN (HGB A1C) 9.8 % (4.8-5.6)
[2018-07-09 23:08] LABS: ALBUMIN 2.4 g/dL (3.4-5.0); MAGNESIUM 1.7 mg/dL (1.8-2.4); PHOSPHORUS* 1.4 mg/dL (2.5-4.9)
--- NOTE | 2018-07-10 02:47 | NUR ---
INSULIN GTT DC'D PER DR ALVES. LANTUS INITIATED AT .
[2018-07-10 03:11] LABS: HEMATOCRIT 25.6 % (37.0-47.0); HEMOGLOBIN 8.7 gm/dL (12.0-15.0); MCHC 34.1 g/dL (28.0-37.0); MCV 93.7 fL (80.0-100.0); MPV 7.2 fl. (7.2-11.1); RBC 2.73 mil/uL (4.20-5.00); RDW-CV 14.9 % (10.5-14.5); WBC 6.1 thou/uL (4.0-11.0)
[2018-07-10 03:17] LABS: CALCIUM 6.9 mg/dL (8.5-10.1); CREATININE 0.8 mg/dL (0.6-1.3); POTASSIUM 3.9 mmol/L (3.5-5.1)
[2018-07-10 07:00] VITALS: BP 129/72
[2018-07-10 07:23] LABS: URINE BILIRUBIN NEGATIVE (Negative); URINE BLOOD NEGATIVE (Negative); URINE CLARITY CLEAR; URINE COLOR YELLOW; URINE GLUCOSE-RANDOM 2+ (Negative); URINE KETONES TRACE (Negative); URINE LEUKOCYTES-REFLEX NEGATIVE (Negative); URINE NITRITE-REFLEX NEGATIVE (Negative); URINE PROTEIN NEGATIVE (Negative); URINE UROBILINOGEN 0.2 E.U./dl (0.2-1.0)
--- NOTE | 2018-07-10 07:26 | NUR ---
ESTELA CORRALES, ORDER RECEIVED FOR PRN PERCOCET WHICH PT STATES HAS DECREASED HER PAIN SIGNIFICANTLY. NO OTHER COMPLAINTS PER PT. CALL LIGHT WITHIN REACH.
[2018-07-10 08:00] VITALS: BP 126/59
[2018-07-10 09:00] VITALS: BP 126/75
--- NOTE | 2018-07-10 09:32 | NUR ---
RECEIVED REPORT FROM SKYLAR DURHAM NURSE RN. ASSESSMENT CHARTED. PATIENT IS AXOX4, DENIES NAUSEA AND VOMITTING. REPORTS PAIN IN NECK AND BACK. PAIN MEDICATIONS GIVEN. SUGARS ARE WITHIN NORMAL LIMITS. PATIENT URINE SENT WITH SCANT KETONES IN URINE. SPOKE WITH MED STUDENT, PATIENT WOULD LIKE TO DISCHARGE TODAY. DR ALVES TO SEE PATIENT. CALL LIGHT IN REACH, GRIZZLYMAN IN PLACE, BED IN LOWEST POSITION.
[2018-07-10 10:00] VITALS: BP 126/75
[2018-07-10 10:43] VITALS: BP 116/61
[2018-07-10] MEDS ORDERED: PERCOCET 10-321 EACH PO (10:44)
--- NOTE | 2018-07-10 11:00 | NUR ---
PT ASKING ABOUT FINDING A NEW PCP. PT SAID YESTERDAY THAT HER [facility] SHOULD BE ACTIVE, TOLD HER TO CALL AND CHECK ON IT. TRIED TO LOOK UP PCP PROVIDERS ON [facility] WEBSITE BUT COULDN'T GET THE SEARCH TO WORK. ADDED TO PT'S DISCHARGE INSTRUCTIONS THAT SHE CAN CALL [facility] OR TRY THE PROVIDER SEARCH LATER TO FIND INFORMATION ON PHYSICIANS THAT CONTRACT WITH HER INSURANCE. PT TO DISCHARGE TO HOME TODAY.
--- NOTE | 2018-07-10 11:09 | NUR ---
DISCHARGE COMPLETED. ALL QUESTIONS ANSWERED. PRESCRIPTIONS AND DISCHARGE PACKET GIVEN TO PATIENT ALONG WITH INFORMATION ON MEDICATIONS SENT HOME. ICE PLATFORM SUPERVISOR COMPLETED EDUCATION WITH PATIENT ON CARB COUNTING AND DIET CONTROL FOR DIABETES. PATIENT VERY RECEPTIVE TO NEW INFORMATION. 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
--- NOTE | 2018-07-10 13:17 | NUR ---
PT. DISCHARGED PRIOR TO O.T. EVAL. PLEASE ORDER FURTHER O.T. SERVICES IF NEEDED.
--- NOTE | 2018-07-10 14:07 | NUR ---
PT DC'ED PRIOR TO P.T. EVALUATION AND TREATMENT. PATIENT NOT SEEN A RESULT. DEBBY RHOADES, MPT
--- NOTE | 2018-07-12 16:45 | NUR ---
PT HAD CALLED EARLIER THAT HER OXYCODONE, HUMALOG AND LANTIS REQUIRE PRIOR AUTH SO SHE COULDN'T GET THEM PICKED UP. SHE SAID SHE CALLED [facility] AND HER INSURANCE IS ACTIVE NOT (IT WAS SHOWING INACTIVE WHEN SHE WAS HERE 07/08-07/10). INSULINS WERE SENT TO ONE [facility] AND PT TOOK HER OXYCODONE RX TO A DIFFERENT [facility]. SHE SAID JUST LEAVE IT LIKE THAT, SHE CAN PICK IT UP FROM THE TWO PHARMACIES THEY ARE BOTH CLOSE TO HER HOUSE. CALLED [facility] HOTLINE [phone] AND SPOKE WITH PHONG. SHE SAID THE PHARMACY HAD ENTERED HER OXYCODONE AT Q 3 HRS, NOT Q 3 HRS PRN SO IT EXCEEDED THE AMOUNT THEY ALLOWED, SHE SAID IF THE PHARMACY ENTERS IT PRN, IT WON'T NEED PRIOR AUTH. SHE SAID THE INSULINS HAVE NOT BEEN ENTERED. CALLED [facility] AND [address] [phone] AND SPOKE WITH PHARMACIST, HE RE-ENTERED THE OXYCODONE PRN AND IT WENT THRU. CALLED [facility] [phone], PHARMACIST ENTERED THE INSULINS AND THEY WENT THRU. 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
== END 2018-07-10 12:15 | disposition home or self-care (01) | DRG 638 ==
LOC: M.ERS 17:15 → M.ICU 18:08 → M.TBA-ER 18:08 → M.ICU 19:37
PROVIDERS: Family Medicine; Internal Medicine; ADMIT Internal Medicine
PROC: 05HY33Z Insertion of Infusion Device into Upper Vein, Percutaneous Approach (ICD-10-PCS; principal; 2018-07-08)
DX: E10.10 Type 1 diabetes mellitus with ketoacidosis without coma (principal); E87.1 Hypo-osmolality and hyponatremia; E10.40 Type 1 diabetes mellitus with diabetic neuropathy, unspecified; I10 Essential (primary) hypertension; Z87.891 Personal history of nicotine dependence; Z79.899 Other long term (current) drug therapy; Z23 Encounter for immunization

== ENCOUNTER 2018-08-24 20:16 | Emergency (ER) | payer OTHER, MEDICAID ==
[~2018-08-24] VITALS: Ht 157.5 cm; Wt 47.6 kg
[~2018-08-24 20:16] MED LIST changes: +PERCOCET 10-321 EACH PO
[2018-08-24] MEDS ORDERED: BACTRIM DS TAB1 EACH PO (21:03)
[2018-08-24] MEDS ORDERED: KEFLEX500 M1 PO (21:03)
[2018-08-24] MEDS ORDERED: NORCO 5-325 TA1 EAC1 PO (21:03)
[2018-08-24 21:15] VITALS: BP 168/85
== END 2018-08-24 21:16 | disposition home or self-care (01) ==
LOC: M.ERS 20:16
DX: L02.811 Cutaneous abscess of head [any part, except face] (principal); L03.811 Cellulitis of head [any part, except face]; I10 Essential (primary) hypertension; E11.9 Type 2 diabetes mellitus without complications; G62.9 Polyneuropathy, unspecified; F17.210 Nicotine dependence, cigarettes, uncomplicated; Z79.4 Long term (current) use of insulin; Z88.6 Allergy status to analgesic agent

== ENCOUNTER 2018-10-03 03:01 | Inpatient (IN) | payer OTHER, MEDICAID ==
[~2018-10-03] VITALS: Ht 157.5 cm; Wt 58.2 kg
--- NOTE | ~2018-10-03 | CON ---
[address] [address] CONSULTATION Name: AKIKO CAMPOS Room: [address] IN .R.#: [id number] Admission: 10/03/18 Attend Phys: Jenna Bang Discharge: Date of : 78 Report #: [id number] THIS REPORT FOR: //name// CC: Seth Ridley DATE OF SERVICE: 10/03/2018 RENAL CONSULTATION: Thank you very much for asking me to see the patient. HISTORY OF PRESENT ILLNESS: The patient is a 38-year-old white female without history of kidney disease as her baseline creatinine is 0.8. She presented to the Emergency Department at [facility] on 10/03/2018 with a several day history of severe back, lower mid and lower back pain. She has been taking markedly elevated doses of ibuprofen and Vicodin. Renal consultation was requested to assist with acute kidney injury. Otherwise, the patient denied having nausea or vomiting, fevers or chills, chest pains or shortness of breath. She has a long history of type 1 diabetes with inconsistent control. All other systems are negative. PAST MEDICAL HISTORY: 1. Renal. Baseline creatinine is 0.8. 2. Type 1 diabetes. Most recent A1c 9.8%. 3. Hypertension. 4. Severe back pain. ALLERGIES: No known drug allergies. SOCIAL HISTORY: Notable for tobacco use. No alcohol use. FAMILY HISTORY: Negative for kidney disease. CURRENT MEDICATIONS: Lantus insulin at bedtime, Humalog with meals, cyclobenzaprine 10 mg every 8 hours and IV fluids. PHYSICAL EXAMINATION: VITAL SIGNS: Blood pressure is 89/66, pulse 106, temperature 98. GENERAL: She is awake and alert, uncomfortable due to back pain. NECK: No jugular venous distention. CHEST: Clear. HEART: Regular rate and rhythm. ABDOMEN: Soft. There is no edema. LABORATORY DATA: Sodium 137, potassium 3.5, chloride 101, CO2 of 24, BUN 45, [place] [address] CONSULTATION Name: AKIKO CAMPOS Room: [address] IN [facility]#: [id number] Admission: 10/03/18 Attend Phys: Jenna Bang Discharge: Date of : 78 Report #: [id number] creatinine 3.0, calcium 7.5, phosphorus 1.4, albumin 1.8. White count 11,000, hemoglobin 9, hematocrit 26.6%, platelet count 172,000. Renal ultrasound is pending. CT scan of the abdomen and pelvis was obtained. The kidneys and ureters were normal without hydronephrosis or stones. There was minimal sludge in the gallbladder. IMPRESSION: 1. Acute kidney injury as her creatinine is increased from 0.8-3.0. Etiology is unclear. 2. Preadmission history notable for very high nonsteroidal anti-inflammatory agent use. Workup is underway. 3. Baseline creatinine 0.8. 4. Severe back pain, likely musculoskeletal. 5. History of nephrolithiasis. No stones were seen on CT scan. 6. Type 1 diabetes. 7. Hypertension. PLAN: 1. Check a postvoid residual bladder scan. 2. Await renal ultrasound. 3. Continue IV fluids. 4. Check urine chemistries and protein. 5. Check serologic data. 6. Follow laboratory data closely. Further plans will depend on clinical course. Thank you very much for asking me to see the patient and allowing me to assist in her care. By: 1450 22Wiley Herrera MD /nt
[~2018-10-03 03:01] MED LIST changes: +KEFLEX500 M1 PO; +NORCO 5-325 TA1 EAC1 PO
[2018-10-03 04:01] VITALS: BP 114/44
[2018-10-03 04:29] LABS: HEMATOCRIT 26.6 % (37.0-47.0); MCH 30.2 pg (26.0-34.0); MCV 88.8 fL (80.0-100.0); NUCLEATED RBCS 0 /100WBC; PLATELET COUNT* 172 thou/uL (150-400); RDW-CV 15.2 % (10.5-14.5)
[2018-10-03 04:41] LABS: ANION GAP 12 mmol/L (7-16); BUN 45 mg/dL (7-18); CALCIUM 7.5 mg/dL (8.5-10.1); CHLORIDE 101 mmol/L (98-107); CO2 24 mmol/L (21-32); GLUCOSE 76 mg/dL (70-99); POTASSIUM 3.5 mmol/L (3.5-5.1); SODIUM 137 mmol/L (136-145)
[2018-10-03 04:52] LABS: ALBUMIN 1.8 g/dL (3.4-5.0); ALKALINE PHOSPHATASE 290 U/L (46-116); INR 1.1; LIPASE 31 U/L (73-393); NT-PRO BRAIN NAT PEPTIDE 19547 pg/mL (<300); PROTIME 11.1 Seconds (9.20-11.50); SGOT 22 U/L (15-37); SGPT 20 U/L (30-65); TOTAL BILIRUBIN 0.8 mg/dL (<0.1-1.0); TOTAL PROTEIN 5.8 g/dL (6.4-8.2); TROPONIN-I LEVEL <0.06 ng/mL (<0.06)
[2018-10-03 05:50] LABS: ABSOLUTE EOSINOPHILS 0.1 thou/uL (0.0-0.7); ABSOLUTE LYMPHOCYTES 1.1 thou/uL (0.8-5.3); ABSOLUTE MONOCYTES 0.6 thou/uL (0.0-1.2); ABSOLUTE NEUTROPHILS 9.2 thou/uL (1.6-8.1); ANISOCYTOSIS 1+; HYPOCHROMASIA 1+; PLATELET ESTIMATE ADEQUATE; POIKILOCYTOSIS Occasional; TOXIC GRANULATION 1+
[2018-10-03 07:42] VITALS: BP 94/52
[2018-10-03 07:45] VITALS: BP 89/66
[2018-10-03 07:46] LABS: URINE BILIRUBIN NEGATIVE (Negative); URINE BLOOD 3+ (Negative); URINE CLARITY CLEAR; URINE COLOR YELLOW; URINE GLUCOSE-RANDOM NEGATIVE (Negative); URINE KETONES NEGATIVE (Negative); URINE LEUKOCYTES-REFLEX 1+ (Negative); URINE NITRITE-REFLEX NEGATIVE (Negative); URINE PROTEIN 2+ (Negative)
[2018-10-03 07:53] LABS: AMP/METHAMP Negative (Negative); BARBITURATES Negative (Negative); BENZODIAZEPINES Negative (Negative); COCAINE Negative (Negative); METHADONE Negative (Negative); OPIATES POSITIVE (Negative); PCP Negative (Negative); THC Negative (Negative)
[2018-10-03 07:57] LABS: SQUAMOUS 4-10 Moderate /LPF (0-3); TRANSITIONAL EPITHEL CELL 4-10 Moderate /LPF (None Seen)
[2018-10-03 07:58] LABS: BACTERIA-REFLEX 1-9 Few /HPF (None Seen); CASTS None Seen /LPF (None Seen); CRYSTALS None Seen /LPF (None Seen); MUCUS 4-6 Moderate strn/LPF (None Seen); URINE RBC >20 Many /HPF (0-2)
--- NOTE | 2018-10-03 13:46 | EKG ---
[place] [address] ELECTROCARDIOGRAM REPORT Name: AKIKO CAMPOS Room: [address] ADM IN [facility]#: [id number] Admission: 10/03/18 Attend Phys: Jenna Bang Discharge: Date of : 78 Report #: [id number] THIS REPORT FOR: //name// [facility] ED Test Date: 2018-10-03 Test Time: 04:38:42 Pat Name: AKIKO CAMPOS Department: Room: [facility] Gender: F Venetian Blind Maker: VICTOR MANUEL : 1980 Requested By: Tamra Amador Order Number: [id number] MD: Hugo Hall Measurements Intervals [place] Rate: 114 P: 64 [place]: 148 QRS: 58 QRSD: 85 T: 38 QT: 318 QTc: 438 Interpretive Statements Sinus tachycardia Probable left atrial enlargement Compared to ECG 07/08/2018 18:06:13 Myocardial infarct finding no longer present T-wave abnormality no longer present Electronically Signed On 10-03-2018 13:46:38 BOWL TOPPER by Hugo Hall [email or web address] <ELECTRONICALLY SIGNED> By: Hugo Hall MD, [facility] 10/03/18 1346 0438 0438 Hugo Hall MD, [facility] /EPI
[2018-10-03 15:49] VITALS: BP 116/66
[2018-10-03 17:22] LABS: URINE POTASSIUM-RANDOM 44.4 mmol/L
--- NOTE | 2018-10-03 19:22 | NUR ---
PATIENT RESTING IN BED. PATIENT IS UP AD NELIDA IN ROOM. PATIENT HAS HAD COMPLAINTS OF FLANK PAIN THROUGHOUT DAY AND ABDOMINAL PAIN THIS EVENING, TREATED ADEQUATELY WITH MORPHINE. PATIENT HAD COMPLAINTS OF NAUSEA THIS EVENING, AND WAS TREATED ADEQUATELY WITH ZOFRAN. PATIENT HAS HAD COMPLAINTS OF TROUBLE SWALLOWING AND CHOKING ON FOOD, DR NOTIFIED AND SWALLOW EVAL ORDERED. PATIENT HAD CT, ULTRASOUND AND NUC MED TESTS TODAY WITHOUT INCIDENT. PATIENT DENIES ANY NEEDS AT THIS TIME. CALL LIGHT WITHIN REACH. WILL CONTINUE TO MONITOR.
[2018-10-04] VITALS: BP 106/57
--- NOTE | 2018-10-04 05:31 | NUR ---
PT UP TO SHOWER AT HS. HS ACCUCHECK 113, NO INSULIN GIVEN. RAC IVF INFUSING PER PUMP TO BE SL AFTER THIS BAG. RECEIVING IV MORPHINE AND ZOFRAN AT HS WITH GOOD RESULT. AM LABS TO BE DRAWN. PT INSTRUCTED TO LET STAFF KNOW WHEN SHE VOIDS SO BLADDER SCAN CAN BE OBTAINED PER ORDERS, STATES SHE KEEPS FOR GETTING TO LET STAFF KNOWN. WILL ATTEMPT TO OBTAIN SCAN BEFORE END OF SHIFT.ABLE TO USE CALL LITE AND MAKE NEEDS KNOWN.
[2018-10-04 08:00] VITALS: BP 133/66
[2018-10-04 11:22] LABS: HEMATOCRIT 25.8 % (37.0-47.0); HEMOGLOBIN 8.5 gm/dL (12.0-15.0); MCH 29.5 pg (26.0-34.0); MCHC 32.9 g/dL (28.0-37.0); MCV 89.5 fL (80.0-100.0); MPV 8.1 fl. (7.2-11.1); RBC 2.88 mil/uL (4.20-5.00); RDW-CV 15.9 % (10.5-14.5); WBC 18.9 thou/uL (4.0-11.0)
[2018-10-04 13:25] LABS: CALCIUM 7.5 mg/dL (8.5-10.1); CREATININE 2.3 mg/dL (0.6-1.3); MAGNESIUM 1.7 mg/dL (1.8-2.4); POTASSIUM 3.1 mmol/L (3.5-5.1)
--- NOTE | 2018-10-04 13:51 | NUR ---
SW met with pt to complete initial assessment, introduce self, and SW role. Pt known to SW from previous hospitalizations. Pt lives at home with Dhruv. Pt did not anticipate any dc needs at this time. Pt says that she will need syrringes and her regular insulin at dc. SW to continue to follow to assist with safe dc planning.
[2018-10-04 16:00] VITALS: BP 126/66
--- NOTE | 2018-10-04 18:19 | NUR ---
SHIFT NOTE - PT SLEPT FOR MOST OF THIS AFTERNOON. PT REQUESTING PAIN MEDS COUPLE TIMES THIS SHIFT. WILL CONTINUE TO MONITOR.
[2018-10-04 19:07] LABS: COMPLEMENT-C4 32 mg/dL (14-44)
[2018-10-04 20:00] VITALS: BP 110/58
[2018-10-04 20:50] VITALS: BP 118/48
--- NOTE | 2018-10-05 03:30 | NUR ---
ASSESSMENT: PT REMAIN ALERT AND ORIENT TIMES FOUR. CHRISTENSEN. UP AD NELIDA. C/O ABD PAIN MOST OF THE EARLIER PART OF THE SHIFT. MS WAS REORDERED PER Enrike MCKINNEY. PT HAD STATED THAT SHE WAS GOING TO LEAVE AMA HAD SHE NOT GOTTEN ANY IV PAIN MEDICATION. PT'S /SON WAS AT THE BEDSIDE UNTIL 0030. PT'S ABD IS DISTENDED, SYMMETRICAL WITH HYPERACTIVE BOWEL SOUNDS IN FELIPA LOWER QUAD AND HYPOACTIVE BS IN UPPER FELIPA QUAD. PT STATED THAT THE NAUSEA HAS SUBSIDED. SLOW PROGRESS TOWARDS DC GOALS. WILL CONTINUE TO MONITOR.
[2018-10-05 04:58] LABS: CALCIUM 7.4 mg/dL (8.5-10.1); CREATININE 2.5 mg/dL (0.6-1.3); MAGNESIUM 2.2 mg/dL (1.8-2.4); POTASSIUM 3.2 mmol/L (3.5-5.1)
[2018-10-05 08:00] VITALS: BP 127/48
[2018-10-05 15:48] VITALS: BP 113/71
[2018-10-05 17:37] LABS: BE -12.5 mmol/L (-2 to +3); HCO3 12.5 mmol/L (22.0-26.0); PCO2 25.3 mmHg (35.0-45.0); PO2 84.9 mmHg (75.0-100.0)
--- NOTE | 2018-10-05 18:30 | NUR ---
TRANSFER NOTE - DR. BOATENG ORDERED ABG'S AND FOUND TO BE IN ACIDOSIS (DKA). REC ORDERS TO TRANSFER TO ICU. INSTRUCTED TO START NS 1,000ML BOLUS NOW. PT WITH TEMP OF 100.3 AT 1700. PT REFUSED TYLENOL D/T POSSIBLE NAUSEA. REPORT GIVEN TO DALJIT ROGERS. NO QUESTIONS.
--- NOTE | 2018-10-05 18:53 | NUR ---
PT NOT PROGRESSING TOWARD GOALS. PT ADMITTED TO THE ICU AT 1830 THIS PM. PT WEAK BUT ABLE TO AMBULATE TO BED. PT COMPLAINING THAT SHE REFUSED INSULIN BECAUSE HER BS WAS TOO LOW. PT STARTED ON INSULIN GTT.
[2018-10-05 18:56] LABS: HEMATOCRIT 24.2 % (37.0-47.0); MCH 29.5 pg (26.0-34.0); MCV 89.4 fL (80.0-100.0); MPV 7.3 fl. (7.2-11.1); NUCLEATED RBCS 0 /100WBC; PLATELET COUNT* 231 thou/uL (150-400); RBC 2.71 mil/uL (4.20-5.00)
[2018-10-05 19:00] VITALS: BP 115/49
[2018-10-05 19:13] LABS: CALCIUM 7.8 mg/dL (8.5-10.1); CREATININE 2.7 mg/dL (0.6-1.3); POTASSIUM 3.2 mmol/L (3.5-5.1)
[2018-10-05 19:17] LABS: ALBUMIN 1.4 g/dL (3.4-5.0); PHOSPHORUS* 3.5 mg/dL (2.5-4.9); TOTAL BILIRUBIN 0.8 mg/dL (<0.1-1.0); TOTAL PROTEIN 5.2 g/dL (6.4-8.2)
[2018-10-05 19:28] LABS: ABSOLUTE LYMPHOCYTES 1.5 thou/uL (0.8-5.3); ABSOLUTE MONOCYTES 0.6 thou/uL (0.0-1.2); ABSOLUTE NEUTROPHILS 16.9 thou/uL (1.6-8.1)
[2018-10-05 19:29] LABS: PLATELET ESTIMATE ADEQUATE
[2018-10-05 19:44] LABS: URINE BLOOD 3+ (Negative); URINE CLARITY CLEAR; URINE COLOR YELLOW; URINE GLUCOSE-RANDOM NEGATIVE (Negative); URINE KETONES 1+ (Negative); URINE NITRITE-REFLEX NEGATIVE (Negative); URINE PROTEIN 1+ (Negative); URINE UROBILINOGEN 0.2 E.U./dl (0.2-1.0)
[2018-10-05 19:46] LABS: ICTOTEST (BILI CONFIRMATORY) Negative (Negative); URINE BILIRUBIN 1+ (Negative); URINE LEUKOCYTES-REFLEX 2+ (Negative)
[2018-10-05 20:03] LABS: BACTERIA-REFLEX >30 Many /HPF (None Seen); SQUAMOUS 0-3 Few /LPF (0-3); URINE WBC-REFLEX >25 Many /HPF (0-5)
[2018-10-05 20:04] LABS: CASTS None Seen /LPF (None Seen); CRYSTALS None Seen /LPF (None Seen)
[2018-10-05 20:53] LABS: CALCIUM 7.4 mg/dL (8.5-10.1); CREATININE 2.5 mg/dL (0.6-1.3)
[2018-10-05 20:57] LABS: ALBUMIN 1.2 g/dL (3.4-5.0); PHOSPHORUS* 3.3 mg/dL (2.5-4.9)
[2018-10-05 21:00] VITALS: BP 108/51
[2018-10-05 21:17] LABS: POTASSIUM 2.9 mmol/L (3.5-5.1)
[2018-10-05 22:00] VITALS: BP 122/47
[2018-10-05 23:00] VITALS: BP 121/52
[2018-10-06] VITALS (22 sets, daily range): BP systolic 105–158; BP diastolic 40–84
--- NOTE | 2018-10-06 00:53 | NUR ---
TEMP 100.9, PT REFUSED TYLENOL STATING IT WILL UPSET HER STOMACH. ZOFRAN GIVEN FOR NAUSEA BUT PT CONTINUES TO REFUSE TYLENOL. HR 120'S, RR 20-22, LUNG SOUNDS PREVIOUS CLEAR NOW COARSE ON LEFT. DR BOATENG PAGED, AWAITING RETURN CALL.
[2018-10-06 01:09] LABS: ALBUMIN 1.4 g/dL (3.4-5.0); CALCIUM 7.8 mg/dL (8.5-10.1); CREATININE 2.4 mg/dL (0.6-1.3); MAGNESIUM 1.8 mg/dL (1.8-2.4); PHOSPHORUS* 3.6 mg/dL (2.5-4.9)
[2018-10-06 01:11] LABS: POTASSIUM 4.1 mmol/L (3.5-5.1)
--- NOTE | 2018-10-06 01:13 | NUR ---
SPOKE TO DR BOATENG, ORDERS RECEIVED. LASIX 40MG IVP GIVEN ORDERED. CXR IN AM.
[2018-10-06 05:47] LABS: ABSOLUTE LYMPHOCYTES 0.8 thou/uL (0.8-5.3); ABSOLUTE MONOCYTES 1.1 thou/uL (0.0-1.2); ABSOLUTE NEUTROPHILS 18.9 thou/uL (1.6-8.1); BASOPHILS 0.1 %; EOSINOPHILS 0.2 %; HEMATOCRIT 23.2 % (37.0-47.0); HEMOGLOBIN 8.2 gm/dL (12.0-15.0); MCH 30.8 pg (26.0-34.0); MCHC 35.2 g/dL (28.0-37.0); MCV 87.5 fL (80.0-100.0); MONOCYTES 5.2 %; MPV 7.4 fl. (7.2-11.1); NUCLEATED RBCS 0 /100WBC; PLATELET COUNT* 219 thou/uL (150-400); POLYS 90.5 %; RBC 2.65 mil/uL (4.20-5.00); RDW-CV 15.7 % (10.5-14.5); WBC 20.9 thou/uL (4.0-11.0)
[2018-10-06 06:30] LABS: ALBUMIN 1.3 g/dL (3.4-5.0); ALKALINE PHOSPHATASE 568 U/L (46-116); ANION GAP 15 mmol/L (7-16); BUN 45 mg/dL (7-18); CALCIUM 8.1 mg/dL (8.5-10.1); CHLORIDE 105 mmol/L (98-107); CO2 15 mmol/L (21-32); CREATININE 2.4 mg/dL (0.6-1.3); GLUCOSE 64 mg/dL (70-99); MAGNESIUM 1.8 mg/dL (1.8-2.4); PHOSPHORUS* 2.8 mg/dL (2.5-4.9); POTASSIUM 3.2 mmol/L (3.5-5.1); SGOT 16 U/L (15-37); SGPT 12 U/L (30-65); SODIUM 135 mmol/L (136-145); TOTAL BILIRUBIN 0.7 mg/dL (<0.1-1.0); TOTAL PROTEIN 5.2 g/dL (6.4-8.2)
[2018-10-06 09:31] LABS: ALBUMIN 1.2 g/dL (3.4-5.0); CALCIUM 7.8 mg/dL (8.5-10.1); CREATININE 2.3 mg/dL (0.6-1.3); MAGNESIUM 1.7 mg/dL (1.8-2.4); PHOSPHORUS* 3.7 mg/dL (2.5-4.9); POTASSIUM 3.9 mmol/L (3.5-5.1)
[2018-10-06 13:31] LABS: ALBUMIN 1.4 g/dL (3.4-5.0); CALCIUM 8.3 mg/dL (8.5-10.1); CREATININE 2.3 mg/dL (0.6-1.3); MAGNESIUM 1.7 mg/dL (1.8-2.4); PHOSPHORUS* 3.4 mg/dL (2.5-4.9); POTASSIUM 3.7 mmol/L (3.5-5.1)
--- NOTE | 2018-10-06 19:09 | NUR ---
PT PROGRESSING TOWARD GOALS. PT OFF OF INSULIN GTT. PT NOT RUNNING FEVERS BUT SKIN IS HOT TO TOUCH. PT ALERT AND PLEASANT, ABLE TO AMBULATE IN THE ROOM.
[2018-10-06 20:15] LABS: CALCIUM 7.6 mg/dL (8.5-10.1); CREATININE 2.2 mg/dL (0.6-1.3); POTASSIUM 3.4 mmol/L (3.5-5.1)
[2018-10-06 20:18] LABS: ALBUMIN 1.1 g/dL (3.4-5.0); MAGNESIUM 1.6 mg/dL (1.8-2.4); PHOSPHORUS* 3.2 mg/dL (2.5-4.9)
[2018-10-07] VITALS (16 sets, daily range): BP systolic 110–142; BP diastolic 41–67
[2018-10-07 06:13] LABS: ALBUMIN 1.3 g/dL (3.4-5.0); CALCIUM 7.6 mg/dL (8.5-10.1); CREATININE 2.1 mg/dL (0.6-1.3); TOTAL BILIRUBIN 0.6 mg/dL (<0.1-1.0); TOTAL PROTEIN 4.6 g/dL (6.4-8.2)
[2018-10-07 06:23] LABS: POTASSIUM 4.5 mmol/L (3.5-5.1)
--- NOTE | 2018-10-07 06:46 | NUR ---
CALL PLACED TO DR GANNON DUE TO ELEVATED BG AND ANION GAP ON AM LABS. ORDER RECEIVED TO RESTART INSULIN GTT AND DEFER TO RENAL FOR INSTRUCTIONS ON IVF AND BICARB.
--- NOTE | 2018-10-07 07:08 | NUR ---
CALL RECEIVED FROM DR GARCIA. NO BICARB REPLACEMENT AT THIS TIME. ORDER TO DC IVF, START INSULIN GTT ORDERED. WHEN BG DROPS <200 START D5NS @ 50ML/HR. MAY INCREASE RATE OF IVF IF BG CONTINUES TO DROP.
--- NOTE | 2018-10-07 09:24 | NUR ---
INSULIN GTT STARTED. PT UP BSC INDEPENDENTLY. VSS. AFEBRILE.
[2018-10-07 11:54] LABS: ALBUMIN 1.3 g/dL (3.4-5.0); CALCIUM 8.2 mg/dL (8.5-10.1); CREATININE 2.3 mg/dL (0.6-1.3); MAGNESIUM 2.1 mg/dL (1.8-2.4); POTASSIUM 3.7 mmol/L (3.5-5.1); TOTAL BILIRUBIN 0.5 mg/dL (<0.1-1.0); TOTAL PROTEIN 5.5 g/dL (6.4-8.2)
[2018-10-07 16:09] LABS: GLOBULIN TOTAL 2.9 g/dL (2.2-3.9); M-SPIKE 0.1 g/dL (Not Observed)
--- NOTE | 2018-10-07 16:32 | EKG ---
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
[2018-10-07 18:06] LABS: URINE PROTEIN (MG/DL) 165.8 mg/dL (Not Estab.)
[2018-10-07 18:06] LABS: ANA INTERPRETATION Negative (())
[2018-10-07 18:24] LABS: CALCIUM 8.1 mg/dL (8.5-10.1); CREATININE 2.2 mg/dL (0.6-1.3); MAGNESIUM 1.8 mg/dL (1.8-2.4); POTASSIUM 4.3 mmol/L (3.5-5.1)
--- NOTE | 2018-10-07 18:30 | NUR ---
ASKED DR BOATENG IF WOULD LIKE DKA PROTOCOL OR INSULIN PROTOCOL. RECEIVED ORDERS TO PUT PT ON INSULIN PROTOCOL. ASKED DR BOATENG IF HE WOULD LIKE Q4 LABS, ANSWER WAS NO. WOULD REPEAT LABS AT 1800 AND THEN IN AM. WHEN PT BLOOD GLUCOSE 150. FLUIDS CHANGED TO D10 NS @[address] ORDERS. PER PHARMACY DO NOT CARRY D10. EQUIVALANT IS DEXTROSE 50% IN WATER. PT ATE 35-40 OF LUNCH. ZOFRAN ADMININSTERED PRIOR TO MEAL. PT TOLERATED. PT AT 15% OF DINNER AND TOLERATED. PT RECEIVING PRN ZOFRAN Q4 HOURS AND MORPHINE 1MG PRN. PT UP INDEPENDENTLY TO BSC. NEW IV PLACED IN RIGHT FOREARM.
[2018-10-08 04:46] LABS: ANION GAP 10 mmol/L (7-16); BUN 45 mg/dL (7-18); CALCIUM 8.1 mg/dL (8.5-10.1); CHLORIDE 107 mmol/L (98-107); CO2 18 mmol/L (21-32); CREATININE 2.1 mg/dL (0.6-1.3); GLUCOSE 109 mg/dL (70-99); MAGNESIUM 1.9 mg/dL (1.8-2.4); POTASSIUM 3.5 mmol/L (3.5-5.1); SODIUM 135 mmol/L (136-145)
--- NOTE | 2018-10-08 06:53 | NUR ---
VSS. INSULIN GTT TITRATED THROUGH THE NIGHT PER PROTOCOL. PAIN TREATED WITH PRN MEDS, ADEQUATE RELIEF PER PT. CALL LIGHT WITHIN REACH.
[2018-10-08 08:35] VITALS: BP 115/51
[2018-10-08 10:01] VITALS: BP 125/43
[2018-10-08 10:31] LABS: CALCIUM 7.6 mg/dL (8.5-10.1); CREATININE 1.9 mg/dL (0.6-1.3); MAGNESIUM 1.7 mg/dL (1.8-2.4); POTASSIUM 3.2 mmol/L (3.5-5.1)
--- NOTE | 2018-10-08 11:00 | NUR ---
SPOKE WITH PT, SHE SAID SHE IS FEELING BETTER TODAY. SHE LIVES AT HOME WITH HER , IS NORMALLY ACTIVE AND INDEP. SHE SAID SHE NORMALLY KEEPS HER BLOOD SUGAR UNDER CONTROL AT HOME 'UNLESS I GET SICK OR SOMETHING HAPPENS.' PT USUALLY TAKES LANTUS AT HS AND THEN SHORT ACTING INSULIN WITH MEALS. SHE SAID SHE DOESN'T REALLY HAVE A PCP, DR. DOUGLAS NAVARRO WAS ASSIGNED TO HER BY HER INSURANCE, SHE SAID SHE HAS SEEN HIM MAYBE ONCE IN THE PAST 3 YEARS. SHE SAID WHEN SHE RUNS OUT OF INSULIN SHE JUST COMES TO AN E.D. TO GET A REFILL. WILL DISCUSS PCP OPTIONS FURTHER WITH HER LATER.
[2018-10-08 12:04] VITALS: BP 127/51
--- NOTE | 2018-10-08 12:16 | NUR ---
PATIENT VOICED SHE IS GOING TO "CHECK OUT" WHEN HER GETS HERE. EDUCATED PATIENT THAT IT WOULD BE AGAINST MEDICAL ADVICE AND THE RISKS OF SUCH. SHE VOICED THAT SHE CANNOT "SIT HERE AND JUST BE IN PAIN BECAUSE THE DOCTOR TOOK AWAY PAIN MEDICATION." PATIENT EDUCATED THAT SHE GETS CLOSER TO DISCHARGE, MORPHINE NEEDED TO BE DISCONTINUED. EDUCATED THAT SHE CAN USE A HEATING PACK OR ORDERED MUSCLE RELAXER FOR CHRONIC BACK PAIN. PATIENT STATED SHE WILL SPEAK WIT HER , BUT WILL PROBABLY LEAVE ONCE HER GETS HERE. DR TASNEEM PROCTOR. AWAITING RESPONSE.
--- NOTE | 2018-10-08 16:13 | 2DMMODE ---
[place] [address] 2 D/M-MODE ECHOCARDIOGRAM Name: AKIKO CAMPOS Room: [address] IN [facility]#: [id number] Admission: 10/03/18 Attend Phys: Sander Ridley Discharge: Date of : 78 Date of Service: 10/08/18 1613 Report #: [id number] THIS REPORT FOR: //name// APPROVED REPORT Study performed: 10/08/2018 10:16:15 EXAM: Comprehensive 2D, Doppler, and color-flow Echocardiogram Patient Location: In-Patient Room #: [facility] Status: routine BSA: 1.62 HR: 95 bpm BP: 125/43 mmHg Rhythm: NSR Other Information Study Quality: Good Indications Murmur 2D Dimensions IVSd: 9.91 (7-11mm) LVOT Diam: 18.69 (18-24mm) LVDd: 42.89 mm PWd: 10.12 (7-11mm) Ascending Ao: 22.73 (22-36mm) LVDs: 22.85 (25-40mm) Volumes Left Atrial Volume (Systole) LA ESV Index: 28.90 mL/m2 Aortic Valve AoV Peak Jordan.: 1.86 m/s AO Peak Gr.: 13.81 mmHg LVOT Max P.94 mmHg AO Mean Gr.: 8.07 mmHg LVOT Mean P.65 mmHg LVOT Max V: 1.58 m/s AO V2 VTI: 28.62 cm LVOT Mean V: 0.98 m/s THIAGO (VTI): 2.70 cm2 LVOT V1 VTI: 28.14 cm Mitral Valve E/A Ratio: 1.29 MV Decel. Time: 174.04 ms MV E Max Jordan.: 1.44 m/s MV PHT: 50.47 [place] [address] 2 D/M-MODE ECHOCARDIOGRAM Name: AKIKO CAMPOS Room: [address] IN [facility]#: [id number] Admission: 10/03/18 Attend Phys: Sander Ridley Discharge: Date of : 78 Date of Service: 10/08/18 1613 Report #: [id number] MVA (PHT): 4.36 cm2 TDI E/Lateral E': 9.00 E/Medial E': 10.29 Medial E' Jordan.: 0.14 m/s Lateral E' Jordan.: 0.16 m/s Pulmonary Valve PV Peak Jordan.: 1.39 m/s PV Peak Gr.: 7.77 mmHg Left Ventricle The left ventricle is normal size. There is normal LV segmental wall motion. There is normal left ventricular wall thickness. Left ventricular systolic function is normal. LVEF is 60-65%. The left ventricular diastolic function is normal. Right Ventricle The right ventricle is normal size. The right ventricular systolic function is normal. Atria The left atrium size is normal. The right atrium size is normal. Aortic Valve The aortic valve is normal in structure. No aortic regurgitation is present. There is no aortic valvular stenosis. Mitral Valve The mitral valve is normal in structure. There is no mitral valve regurgitation noted. No evidence of mitral valve stenosis. Tricuspid Valve The tricuspid valve is normal in structure. Trace tricuspid regurgitation. Unable to assess PA pressure. Pulmonic Valve The pulmonary valve is normal in structure. There is no pulmonic valvular regurgitation. Great Vessels The aortic root is normal in size. IVC is normal in size and collapses >50% with inspiration. Pericardium There is [place] [address] 2 D/M-MODE ECHOCARDIOGRAM Name: AKIKO CAMPOS Room: [address] IN [facility]#: [id number] Admission: 10/03/18 Attend Phys: Sander Ridley Discharge: Date of : 78 Date of Service: 10/08/18 1613 Report #: [id number] <Conclusion> The left ventricle is normal size. There is normal left ventricular wall thickness. Left ventricular systolic function is normal. LVEF is 60-65%. The left ventricular diastolic function is normal. IVC is normal in size and collapses >50% with inspiration. <ELECTRONICALLY SIGNED> By: Amador Jasmine MD, FACC 10/08/18 1613 12 161 Amador Jasmine MD, FACC /INF
[2018-10-08 16:30] VITALS: BP 126/87
--- NOTE | 2018-10-08 16:54 | NUR ---
PATIENT TRANSFERED TO ROOM 209. REPORT GIVEN TO DALJIT TODD. ALL QUESTIONS ANSWERED. PATIENT TRANSFERED UP BY WHEELCHAIR WITH DAIRY FROZEN MANAGER. ALL BELONGINGS TAKEN WITH PATIENT.
--- NOTE | 2018-10-08 17:40 | NUR ---
ASSUMED PT CARE AT 1700. PT AGREED TO CONTINUE TX AND NOT LEAVE AMA PREVIOUSLY STATED. PT ORIENTED TO ROOM AND CALL LIGHT, FLUIDS RUNNING AT 50ML/HR ORDERED. PT A&O X4, UP AD NELIDA, BS CHARTED, DIABETIC DIET ORDERED. PT DENIES ANY PAIN/DISTRESS AT THIS TIME. STATES SHE WILL "STAY IF SHE IS ALLOWED TO SHOWER". PT PERMITTED TO SHOWER AT THIS TIME. PT IS TRANSFER FROM ICU AND THIS NURSE IS IN AGREEMENT WITH PREVIOUS NURSE ASSESSMENT.
[2018-10-08 22:00] VITALS: BP 144/65
[2018-10-09] VITALS: BP 124/57
[2018-10-09 04:00] VITALS: BP 111/60
[2018-10-09 08:20] VITALS: BP 117/51
--- NOTE | 2018-10-09 08:22 | NUR ---
Pt a/o x4. RA. VSS. Blood sugar stable. C/o pain, pain meds given per order. No apparent distress noted.
[2018-10-09 08:26] LABS: HEMATOCRIT 20.8 % (37.0-47.0); MCH 29.4 pg (26.0-34.0); MCHC 33.3 g/dL (28.0-37.0); MCV 88.3 fL (80.0-100.0); MPV 8.4 fl. (7.2-11.1); RBC 2.36 mil/uL (4.20-5.00); RDW-CV 15.8 % (10.5-14.5); WBC 12.3 thou/uL (4.0-11.0)
[2018-10-09 08:27] LABS: CALCIUM 7.7 mg/dL (8.5-10.1); CREATININE 1.7 mg/dL (0.6-1.3); MAGNESIUM 1.6 mg/dL (1.8-2.4); POTASSIUM 3.9 mmol/L (3.5-5.1)
[2018-10-09 08:32] LABS: HEMOGLOBIN 6.9 gm/dL (12.0-15.0)
--- NOTE | 2018-10-09 11:34 | NUR ---
RECEIVED REPORT FROM JUDY AND ASSUMED CARE OF PT @ 1743.PT IS A/O X4,VSS,TRACING SR ON THE MONITOR.ASSESSMENT CHARTED.IV PATENT AND SALINE LOCKED.PT IS CALM AND COOPERATIVE WITH NO C/O PAIN.PT LEFT RESTING IN BED WITH CALL LIGHT AND FALL PRECAUTIONS IN PLACE.WILL CONTINUE TO MONITOR.
[2018-10-09 12:18] VITALS: BP 119/62
--- NOTE | 2018-10-09 12:35 | NUR ---
PT STARTED WALKING DOWN HALLWAY AND STATED SHE WAS DISCHARGED.PT WAS EDUCATED ON HOSPITAL POLICY THAT PAPERWORK NEEDED TO BE FINISHED AND GIVEN TO HER.PT STATED SHE WASNT GOING TO WAIT AND DIDNT SEE EYE TO EYE WITH DOCTOR.PT WROTE A NOTE AND SIGNED IT ON THE BACK OF THE AMA FORM.PT STATES SHE REMOVED HER OWN IV BUT REFUSED TO ALLOW NURSE TO CHECK.ALL PERSONAL BELONGINGS PACKED AND TAKEN WITH THE PT.
== END 2018-10-09 12:20 | disposition left against medical advice (07) | DRG 871 ==
LOC: M.ERS 03:01 → M.TBA-ER 06:07 → M.3W 06:07 → M.ICU 10-05 18:33 → M.2W 10-08 16:53
PROVIDERS: Emergency Medicine; Family Medicine; Internal Medicine; Internal Medicine Nephrology; ADMIT Internal Medicine
DX: A41.9 Sepsis, unspecified organism (principal); E10.10 Type 1 diabetes mellitus with ketoacidosis without coma; N17.0 Acute kidney failure with tubular necrosis; E87.2 Acidosis; N12 Tubulo-interstitial nephritis, not specified as acute or chronic; R65.20 Severe sepsis without septic shock; I10 Essential (primary) hypertension; F17.210 Nicotine dependence, cigarettes, uncomplicated; E10.65 Type 1 diabetes mellitus with hyperglycemia; E10.40 Type 1 diabetes mellitus with diabetic neuropathy, unspecified; E87.6 Hypokalemia; E83.42 Hypomagnesemia; D50.9 Iron deficiency anemia, unspecified; D63.8 Anemia in other chronic diseases classified elsewhere; Z53.21 Procedure and treatment not carried out due to patient leaving prior to being seen by health care provider; K82.8 Other specified diseases of gallbladder; K59.00 Constipation, unspecified; E86.9 Volume depletion, unspecified; T39.395A Adverse effect of other nonsteroidal anti-inflammatory drugs [NSAID], initial encounter; S39.012A Strain of muscle, fascia and tendon of lower back, initial encounter; X58.XXXA Exposure to other specified factors, initial encounter; Y93.89 Activity, other specified; Y99.8 Other external cause status; Y92.89 Other specified places as the place of occurrence of the external cause; Z87.442 Personal history of urinary calculi; Z79.4 Long term (current) use of insulin; Z79.899 Other long term (current) drug therapy; Z88.8 Allergy status to other drugs, medicaments and biological substances